=== PATIENT | female | born 1950 | race Caucasian/White ===

== ENCOUNTER 2024-11-05 11:30 | Observation (INO) ==
[2024-11-05] MEDS: NS 1,000 ML IV 1,000 ML ONE ×2 (08:52→15:55)
[2024-11-05] MEDS: NOZIN NASAL SANITIZER TP ONE (09:10)
[2024-11-05 09:35] VITALS: BMI 24.0
[~2024-11-05 11:30] MED LIST: BARHEMSYS INJ IVP PRN; BENADRYL INJ 50 MG VIAL IVP PRN; DILAUDID INJ IVP PRN; ZOFRAN INJ 4 MG VIAL IVP PRN
[2024-11-05] MEDS: NS 1,000 ML IV 800 ML IV PRN (11:50)
[2024-11-05] MEDS: PEPCID 20 MG VIAL IVP PRN (11:50)
[2024-11-05] MEDS: ZOFRAN INJ 4 MG VIAL IVP PRN (11:50)
[2024-11-05] MEDS: REGLAN INJ 10 MG VIAL IVP PRN (11:50)
[2024-11-05] MEDS: ANCEF VIAL 1 GRAM ONE ×2 (11:52)
[2024-11-05] MEDS: NS 100 ML IV 100 ML ONE (11:52)
[2024-11-05] MEDS ORDERED: KETAMINE HCL ONE (11:59)
[2024-11-05] MEDS ORDERED: PRECEDEX INJ VIAL ONE (11:59)
[2024-11-05] MEDS: VERSED IVP PRN (11:59)
[2024-11-05] MEDS ORDERED: ULTANE GAS IN ONE (11:59)
[2024-11-05] MEDS: BETADINE SOLN ONE (12:08)
[2024-11-05] MEDS ORDERED: XYLOCAINE 2 % (PLAIN) PRN (12:09)
[2024-11-05] MEDS: DIPRIVAN VIAL 100 ML IVP PRN (12:09)
[2024-11-05] MEDS: DECADRON INJ IVP PRN (12:14)
[2024-11-05] MEDS: MARCAINE 0.25% INJ ONE (12:22)
[2024-11-05] MEDS: NEO-SYNEPHRINE INJ IVP PRN (13:05)
[2024-11-05] MEDS: EPHEDRINE SULFATE INJ IVP PRN (13:17)
[2024-11-05] MEDS: KETAMINE HCL IV PRN (13:24)
[2024-11-05] MEDS: FENTANYL VIAL INJ 100 mcg IVP PRN (13:39)
[2024-11-05] MEDS: ANCEF VIAL 1 GRAM IV PRN (14:04)
[2024-11-05] MEDS: OFIRMEV IV 1000 MG VIAL 1,000 MG/100 ML VIAL IV PRN (14:05)
[2024-11-05] MEDS: TORADOL 30 MG VIAL IVP PRN (14:09)
[2024-11-05] MEDS ORDERED: NORVASC TAB 10 MG PRN (14:09)
[2024-11-05] MEDS: PRECEDEX INJ VIAL IVP PRN (14:21)
[2024-11-05] MEDS: PEPCID 20 MG VIAL ONE (15:48)
[2024-11-05] MEDS: REGLAN INJ 10 MG VIAL ONE (15:48)
[2024-11-05] MEDS: VERSED ONE (15:48)
[2024-11-05] MEDS: OFIRMEV IV 1000 MG VIAL 1,000 MG/100 ML VIAL IV ONE (15:48)
[2024-11-05] MEDS: ZOFRAN INJ 4 MG VIAL ONE (15:54)
[2024-11-05] MEDS: DECADRON INJ ONE (15:54)
[2024-11-05] MEDS: DIPRIVAN VIAL 20 ML ONE (15:54)
[2024-11-05] MEDS: FENTANYL VIAL INJ 100 mcg ONE (15:55)
[2024-11-05] MEDS: VASOSTRICT INJ 20 UNITS VIAL ONE (15:55)
[2024-11-05] MEDS: TORADOL 30 MG VIAL ONE (15:55)
[2024-11-05] MEDS: EPHEDRINE SULFATE INJ ONE (15:56)
[2024-11-06 06:00] LABS: BASOPHILS % (AUTO) 0.2 % (0.2-1.0); HEMATOCRIT 29.7 % (36.0-47.0); HEMOGLOBIN 9.8 g/dL (12.0-16.0); LYMPHOCYTES # (AUTO) 2.9 X10^3/uL (1.3-2.9); LYMPHOCYTES % (AUTO) 21.1 % (21.0-51.0); MEAN CORPUSCULAR HEMOGLOBIN 25.8 pg (27.0-34.0); MEAN CORPUSCULAR HGB CONC 32.9 g/dL (33.0-35.0); MEAN CORPUSCULAR VOLUME 78.4 fL (80.0-100.0); MONOCYTES # (AUTO) 1.1 x10^3/uL (0.3-0.8); MONOCYTES % (AUTO) 7.6 % (0.0-13.0); NEUTROPHILS # (AUTO) 9.9 x10^3/uL (2.2-4.8); NEUTROPHILS % (AUTO) 71.1 % (42.0-75.0); PLATELET COUNT 230 X10^3/uL (150.0-450.0); RED BLOOD COUNT 3.79 X10^6/uL (3.5-5.4)
[2024-11-06 06:10] LABS: ALBUMIN 3.1 g/dL (3.4-5.0); CALCIUM 8.8 mg/dL (8.5-10.1); CARBON DIOXIDE 24.9 mmol/L (21-32); COR CA(FOR HYPOALB) 9.5 mg/dL (8.5-10.1); CREATININE 1.5 mg/dL (0.55-1.02); POTASSIUM 4.5 mmol/L (3.5-5.1); TOTAL PROTEIN 6.9 g/dL (6.4-8.2)
[2024-11-06 09:20] VITALS: BP 147/68; PULSE 92; RESP 18; TEMP 97.3; O2SAT 97
--- NOTE | 2024-11-06 09:34 | NOTE.SOAP ---
Soap Note Note for Day of Date of Exam: 11/06/24 Subjective Data Subjective Data: Patient is POD#1 STJ fusion, CCJ fusion, and medial column fusion, and achilles tenotomy. She is super happy with her foot. Even was becoming teary eye this morning. She has no pain in the foot. She denies any nausea, vomiting, fevers, chills, shortness of breath, or chest pain. No profuse sweating either. No calf or thigh pain. Objective Data Objective Data: Right Lower Extremity Exam: Dressing taken down. Surgical incisions are healing well. She has no hematoma formation underneath the incisions. No signs of dehisence. CFT WNL to all digits. Pins in place in the hallux are stable and not loose. CFT is slight sluggish at the hallux but present. Overall alignment is drastically improved when compared to pre-op. No signs or symptoms concerning for DVT or PE. Assessment Assessment: 74 year old F POD#1 STJ, CCJ, and medial column fusion with midfoot osteotomy and achilles tenotomy and first mpj fusion Plan Plan: - NWB to RLE - Doing super well this am and very happy. - No pain in foot. - No concern for DVT or PE. - She can keep dressing clean and dry and intact until follow-up appointment. - She has prn pain Rx in chart. - She has lovenox in chart. She can receive on dose this morning by nursing then start her lovenox tomorrow. - She has PRN Zofran Rx in chart. - Doxycycline is in chart as well. Id like her to start that as well. - She is okay from discharge from Dr. Nguyen's and I standpoint.
== END 2024-11-06 11:15 | disposition home health service (06) ==
LOC: MED/SURG → EDUNIT# 11:30
PROVIDERS: ADMIT Obstetrics & Gynecology Obstetrics; ATTEND Obstetrics & Gynecology Obstetrics
PROC: DEBRIDE (2024-11-05 11:45)
DX: M19.071 Primary osteoarthritis, right ankle and foot; M14.671 Charcot's joint, right ankle and foot; M67.01 Short Achilles tendon (acquired), right ankle; X58.XXXA Exposure to other specified factors, initial encounter; E11.621 Type 2 diabetes mellitus with foot ulcer; S93.121A Dislocation of metatarsophalangeal joint of right great toe, initial encounter; M21.071 Valgus deformity, not elsewhere classified, right ankle